=== PATIENT | female | born 1960 | race African-American/Black ===

== ENCOUNTER 2024-02-13 02:59 | Emergency (ER) | payer BC ==
[~2024-02-13] VITALS: Ht 177.8 cm; Wt 148.0 kg
[2024-02-13 03:15] VITALS: O2SAT 99
[2024-02-13 04:02] LABS: CHLORIDE 110 mEq/L (98-107); POTASSIUM 3.2 mEq/L (3.5-5.1); SODIUM 143 mEq/L (136-145)
[2024-02-13 04:03] LABS: CARBON DIOXIDE 25 mEq/L (21-32)
[2024-02-13 04:04] LABS: CALCIUM 9.3 mg/dL (8.7-10.4)
[2024-02-13 04:08] LABS: CREATININE 0.7 mg/dL (0.6-1.0); GLUCOSE 98 mg/dL (70-105)
[2024-02-13 04:09] LABS: UREA NITROGEN BLOOD 10 mg/dL (9-23)
[2024-02-13 04:10] LABS: ALANINE AMINOTRANSFERASE 12 IU/L (10-49); ALBUMIN 4.4 g/dL (3.2-4.8); ASPARTATE AMINOTRANSFERASE 19 IU/L (<34)
[2024-02-13 04:11] LABS: BILIRUBIN DIRECT 0.2 mg/dL (<=3.0); BILIRUBIN TOTAL 0.5 mg/dL (0.1-1.0); PROTEIN TOTAL 7.6 g/dL (6.0-8.3)
[2024-02-13 04:12] LABS: BASOPHILS % 0.9 % (0.0-2.0); EOSINOPHILS % 2.7 % (0.0-5.0); HEMATOCRIT. 40.2 % (36.0-48.0); HEMOGLOBIN. 13.1 g/dL (12.0-16.0); LYMPHOCYTES % 39.2 % (20.0-50.0); MEAN CORPUSCULAR HEMOGLOBIN 29.5 pg (28.0-32.0); MEAN CORPUSCULAR HGB CONC 32.7 g/dL (31.0-37.0); MEAN CORPUSCULAR VOLUME 90.4 fL (81.0-99.0); MEAN PLATELET VOLUME 7.7 fl (7.4-10.4); MONOCYTES % 8.3 % (2.0-8.0); NEUTROPHILS % 48.9 % (40.0-76.0); PLATELET 244 x1000/uL (130-400); RED BLOOD CELL COUNT 4.45 mill/uL (4.2-5.4); RED CELL DISTRIBUTION WIDTH 14.9 % (11.6-14.6)
[2024-02-13] MEDS ORDERED: HYDROMORPHONE HCL/PF 2MG/ML INJ IV ONE (05:30)
[2024-02-13] MEDS: ONDANSETRON HCL 4MG/2ML INJ IV STA (05:52)
[2024-02-13] MEDS: POTASSIUM CHLORIDE 20MEQ TABLET SR PO ONE (05:52)
[2024-02-13] MEDS: KETOROLAC 30MG/ML VIAL IV ONE (05:53)
[2024-02-13] MEDS: IOHEXOL-300 100 ML BOTTLE ONE (06:47)
[2024-02-13] MEDS ORDERED: DILTIAZEM HCL 180MG CAPSULE ER 24HR PO ONE (08:30)
[2024-02-13] MEDS: SODIUM CHLORIDE 0.9% 1,000 ML IV ONE (08:44)
[2024-02-13] MEDS: DILTIAZEM HCL 120MG CAPSULE ER 24HR PO ONE (08:44)
[2024-02-13 09:09] LABS: CLARITY URINE CLEAR (CLEAR); COLOR URINE YELLOW (YELLOW); GLUCOSE URINE NEGATIVE (NEGATIVE); KETONES URINE TRACE (NEGATIVE); LEUKOCYTE ESTERASE URINE NEGATIVE (NEGATIVE); NITRITE URINE NEGATIVE (NEGATIVE); OCCULT BLOOD URINE NEGATIVE (NEGATIVE); PH URINE 5.5 (4.5-8.0); PROTEIN URINE NEGATIVE (NEGATIVE); SPECIFIC GRAVITY URINE 1.056 (1.005-1.030)
[2024-02-13] MEDS ORDERED: DILT240C91 MT (09:39)
[2024-02-13] MEDS ORDERED: IBUP-2029 MT (09:39)
[2024-02-13 09:55] VITALS: BP 147/85; PULSE 99; RESP 16; TEMP 98.1
== END 2024-02-13 10:56 | disposition home or self-care (01) ==
LOC: ER 03:17
DX: R10.31 Right lower quadrant pain (principal); I10 Essential (primary) hypertension; Z90.710 Acquired absence of both cervix and uterus; Z88.2 Allergy status to sulfonamides; Z88.1 Allergy status to other antibiotic agents; Z88.5 Allergy status to narcotic agent; Z98.890 Other specified postprocedural states
CPT/HCPCS: 99285; 74177; 96374; 96375; 80076; 80048; 81003; 83880; 83690; 85025; 86850; 86900; 86901; 36415; 93005; Q9967; J1885; J2405; J7030; J1170